=== PATIENT | male | born 1945 | race Caucasian/White ===

== ENCOUNTER 2017-12-26 11:05 | Emergency (ER) | payer SELFPAY ==
[~2017-12-26] VITALS: Ht 157.5 cm; Wt 78.0 kg
[2017-12-26 11:10] VITALS: BP 145/78
--- NOTE | 2017-12-26 11:14 | NUR ---
PT AMBULATED TO BED 8
--- NOTE | 2017-12-26 11:22 | NUR ---
72 YO M BIB DTR W/ C/O PRODUCTIVE COUGH X 10 DAYS. PT DENIES ANY OTHER SYMTPOMS AT THIS TIME, HIS CONCERN IS THAT AT FIRST HE WAS ABLE TO COUGH UP THE GREEN PHLEGM, BUT NOW HE CANNOT COUGH UP THE PHLEGM BUT IT IS NOW WHITE IN COLOR. LUNGS WITH CRACKLES ASCULTATED IN LEFT UPPER LOBE UPON INSPIRATION, BUT OTHERWISE CLEAR. RR EVEN AND UNLABORED. ER MD GAITAN NOTIFIED OF PT STATUS. PT NEEDS MET. SAFETY PRECAUTIONS INITIATED. WILL CONTINUE TO MONITOR.
--- NOTE | 2017-12-26 12:02 | NUR ---
DR GAITAN AT BEDSIDE
[2017-12-26] MEDS ORDERED: methylPREDNISolone SS 125 MG/2 ML VIAL IVP ONE (12:15)
[2017-12-26] MEDS ORDERED: cefTRIAXone 1,000 MG in DEXT 5% MINI-BAG PLUS 50 ML IV ONE (12:15)
[2017-12-26] MEDS ORDERED: AZITHROMYCIN 500 MG in DEXTROSE 5% 250 ML IV ONE (12:15)
[2017-12-26] MEDS ORDERED: IPRATROPIUM 0.02% 0.5 MG/2.5 ML NEBU INH ONE (12:15)
[2017-12-26] MEDS ORDERED: ASPIRIN 81 MG TAB.CHEW PO ONE (12:15)
[2017-12-26] MEDS ORDERED: ALBUTEROL 0.083% 2.5 MG/3 ML NEBU INH ONE (12:15)
[2017-12-26 12:53] LABS: BASOPHILS # (AUTO) 0.1 K/uL (0.00-0.22); BASOPHILS % (AUTO) 0.9 % (0.0-2.0); EOSINOPHILS # (AUTO) 0.3 K/uL (0-0.4); EOSINOPHILS % (AUTO) 3.6 % (0.0-4.0); HEMATOCRIT 42.2 % (36-52); HEMOGLOBIN 14.3 g/dL (12.0-18.0); LYMPHOCYTES # (AUTO) 1.4 K/uL (2.0-11.5); LYMPHOCYTES % (AUTO) 16.5 % (20.5-51.1); MEAN CORPUSCULAR HEMOGLOBIN 31 pg (27-31); MEAN CORPUSCULAR HGB CONC 34 g/dL (33-37); MEAN CORPUSCULAR VOLUME 90.6 fL (80-94); MONOCYTES # (AUTO) 0.5 K/uL (0.8-1.0); MONOCYTES % (AUTO) 6.1 % (1.7-9.3); NEUTROPHILS % (AUTO) 72.9 % (42.2-75.2); PLATELET COUNT (AUTO) 183 K/uL (140-450); RED BLOOD CELL COUNT(AUTO) 4.66 MIL/uL (4.20-6.10); RED CELL DISTRIBUTION WIDTH 13.6 % (11.6-13.7); WHITE BLOOD COUNT (AUTO) 8.3 K/uL (4.8-10.8)
[2017-12-26 13:00] LABS: ANION GAP 12.7 (8-16); CARBON DIOXIDE 28.2 mmol/L (21-32); CHLORIDE 102 mmol/L (98-107); CREATININE 0.8 mg/dL (0.7-1.3); GLUCOSE 257 mg/dL (74-106); POTASSIUM 3.9 mmol/L (3.5-5.1); SODIUM SERUM 139 mmol/L (136-145); UREA NITROGEN, BLOOD 16 mg/dL (7-18)
[2017-12-26] MEDS ORDERED: AZITHROMYCIN 500 MG INJ VIAL IV ONE (13:00)
[2017-12-26] MEDS ORDERED: cefTRIAXone 1,000 MG VIAL ONE (13:00)
[2017-12-26 13:07] LABS: ALBUMIN 3.5 g/dL (3.4-5.0); ASPARTATE AMINOTRANSFERASE 42 U/L (15-37); TOTAL BILIRUBIN 0.4 mg/dL (0.0-1.0)
[2017-12-26 13:22] LABS: PROTHROMBIN TIME 10.7 secs (10.8-13.4)
[2017-12-26 14:53] VITALS: BP 129/65
--- NOTE | 2017-12-26 14:53 | NUR ---
Patient discharged with v/s stable. Written and verbal after care instructions given and explained. Patient alert, oriented and verbalized understanding of instructions. Ambulatory with steady gait. All questions addressed prior to discharge. ID band removed. Patient advised to follow up with PMD. Rx of Prednisone, Albuterol, Promethazine, and Azithromycin given. Patient educated on indication of medication including possible reaction and side effects. Opportunity to ask questions provided and answered.
[2017-12-26 14:56] LABS: APPEARANCE,URINE CLEAR (CLEAR); BILIRUBIN,URINE NEGATIVE (NEGATIVE); BLOOD, URINE NEGATIVE (NEGATIVE); COLOR,URINE YELLOW (YELLOW); LEUKOCYTE ESTERASE ,URINE NEGATIVE (NEGATIVE); NITRITE, URINE NEGATIVE (NEGATIVE); UGLUCOSE 3+ (NEGATIVE)
[2017-12-26 15:30] LABS: RBC,URINE 0-5 (RARE) /HPF (0-5); WBC,URINE 0-5 (RARE) /HPF (0-5)
== END 2017-12-26 14:53 | disposition home or self-care (01) ==
LOC: MED 11:05
DX: J45.909 Unspecified asthma, uncomplicated (principal); E11.9 Type 2 diabetes mellitus without complications; I10 Essential (primary) hypertension; Z95.1 Presence of aortocoronary bypass graft
CPT/HCPCS: 36415; 36600; 71046; 80053; 81001; 82550; 82803; 84484; 85025; 85379; 85610; 85730; 87040; 93005; 94640; 96365; 96368; 96375; 99285; J0456; J0696; J2930; J7613; J7644